=== PATIENT | male | born 1990 | race Caucasian/White ===

== ENCOUNTER 2017-07-18 18:38 | Emergency (ER) | payer MEDICAID, OTHER | END 2017-07-18 20:10 | disposition home or self-care (01) | LOC: FTE 18:38 | DX: L02.01 Cutaneous abscess of face (principal) | CPT/HCPCS: 99284; Z7502 ==

== ENCOUNTER 2017-09-05 07:18 | Emergency (ER) | payer BC, MEDICAID ==
[2017-09-05] MEDS: LIDOCAINE 1% (MDV) 10 ML INJ INJ (07:49)
== END 2017-09-05 08:27 | disposition home or self-care (01) ==
LOC: FTE 07:18
DX: L02.212 Cutaneous abscess of back [any part, except buttock and flank] (principal)
CPT/HCPCS: 10060; 99284-25

== ENCOUNTER 2017-11-24 16:07 | Emergency (ER) | payer BC | END 2017-11-24 17:21 | disposition home or self-care (01) | LOC: FTE 16:07 | DX: L72.9 Follicular cyst of the skin and subcutaneous tissue, unspecified (principal) | CPT/HCPCS: 99283 ==

== ENCOUNTER 2018-03-22 05:53 | Emergency (ER) | payer BC | END 2018-03-22 07:43 | disposition home or self-care (01) | LOC: FTE 07:43 | DX: L03.811 Cellulitis of head [any part, except face] (principal); R40.2412 Glasgow coma scale score 13-15, at arrival to emergency department | CPT/HCPCS: 99283 ==